=== PATIENT | female | born 1945 | race Caucasian/White ===

== ENCOUNTER 2016-11-24 09:27 | Emergency (ER) | payer MEDICARE, OTHER ==
[~2016-11-24] VITALS: Ht 154.9 cm; Wt 59.0 kg
[~2016-11-24 09:27] MED LIST: BENI40TA30 PO; CLON1 PO; PRAV40TA2 PO; PROP80CA PO
[2016-11-24 09:30] VITALS: BP 116/60; PULSE 81; RESP 18; TEMP 98.8; O2SAT 95
[2016-11-24] MEDS ORDERED: PROP20TA3 PO (09:51)
[2016-11-24] MEDS ORDERED: METH500T3 PO (09:51)
[2016-11-24] MEDS ORDERED: CLON0.5T PO (09:51)
[2016-11-24] MEDS ORDERED: ATOR40TA16 PO (09:51)
[2016-11-24] MEDS ORDERED: AMLO5TAB2 PO (09:51)
--- NOTE | 2016-11-24 09:56 | PD ---
HPI Chief Complaint: Cold / Flu Symptoms Time Seen by Provider: 09:48 Travel History International Travel<30 days: No Contact w/Intl Traveler<30days: No Traveled to known affect area: No History of Present Illness HPI 71-year-old female with history of hypertension and reflux, presents to the ER today for 2 days history of cough, cold symptoms, chills, malaise, nausea. She denies any shortness of breath, chest pains, abdominal pains, vomiting, diarrhea , or other symptoms. She does not know any sick contacts. Modifying Factors: None Associated Signs & Symptoms: Cough, cold symptoms, chills, malaise Risk Factors: None PFSH Past Medical History Hx Anticoagulant Therapy: No Arthritis: No Asthma: No Heart Rhythm Problems: No Cancer: No Cardiovascular Problems: Yes (HTN, CHOL) High Cholesterol: Yes Chest Pain: No Congestive Heart Failure: No COPD: No Cerebrovascular Accident: No Diabetes: No Diminished Hearing: No Endocrine: No Gastrointestinal Disorders: Yes (gerd/nausea) GERD: Yes Genitourinary: No Hiatal Hernia: No Hypertension: Yes Immune Disorder: No Implanted Vascular Access Dvce: No Musculoskeletal: No Neurologic: No Psychiatric: No Reproductive: No Respiratory: No Sleep Apnea: No Ulcer: No Influenza Vaccination: No ?: Not Past Surgical History Abdominal Surgery: Yes (ball bladder removal/hysterectormy) Cardiac Surgery: No (as a baby heart valve, but no surgery) Cholecystectomy: Yes Ear Surgery: No Endocrine Surgery: No Eye Surgery: No Genitourinary Surgery: No Gynecologic Surgery: Yes (hysterectomy) Hysterectomy: Yes Neurologic Surgery: No Oral Surgery: No Thoracic Surgery: No Other Surgery: Yes Social History Alcohol Use: No Tobacco Use: Yes (1 PPD) Substance Use: No Allergies-Medications (Allergen,Severity, Reaction): Coded Allergies: Penicillin (Verified Allergy, Severe, Somnolence, 11/24/16) Reported Meds & Prescriptions Reported Meds & Active Scripts Active Macrobid (Nitrofurantoin Monoh/Nitrofur Macro) 100 Mg Cap 100 Mg PO BID 7 Days Reported Propranolol (Propranolol HCl) 20 Mg Tab 20 Mg PO BID Methocarbamol 500 Mg Tab 500 Mg PO BID PRN Amlodipine (Amlodipine Besylate) 5 Mg Tab 5 Mg PO DAILY Clonazepam 0.5 Mg Tab 0.5 Mg PO TID PRN Atorvastatin (Atorvastatin Calcium) 40 Mg Tab 40 Mg PO HS Review of Systems Except as stated in HPI: all other systems reviewed are Neg Physical Exam Narrative GENERAL: Well-developed pleasant elderly white female patient currently in mild distress. Awake and oriented 3. SKIN: Focused skin assessment warm/dry. HEAD: Atraumatic. Normocephalic. EYES: Pupils equal and round. No scleral icterus. No injection or drainage. ENT: Mucosa pink and moist. Mild erythema with no significant exudates. No uvular edema. No uvular, palatal, or tonsillar deviation. Airway patent. Nasal turbinates appear normal without nasal blood, purulent drainage or septal hematoma. NECK: Trachea midline. No JVD. CARDIOVASCULAR: Regular rate and rhythm. No murmur appreciated. RESPIRATORY: No accessory muscle use. Clear to auscultation. Breath sounds equal bilaterally. GASTROINTESTINAL: Abdomen soft, non-tender, nondistended. Hepatic and splenic margins not palpable. MUSCULOSKELETAL: No obvious deformities. No clubbing. No cyanosis. No edema. NEUROLOGICAL: Awake and alert. No obvious cranial nerve deficits. Motor grossly within normal limits. Normal speech. PSYCHIATRIC: Appropriate mood and affect; insight and judgment normal. Data Data Last Documented VS Vital Signs Date Time Temp Pulse Resp B/P Pulse Ox O2 Delivery O2 Flow Rate FiO2 11/24/16 10:31 98.3 71 18 108/51 98 Room Air Orders Complete Blood Count With Diff (11/24/16 09:51) Comprehensive Metabolic Panel (11/24/16 09:51) Lactic Acid Sepsis Protocol (11/24/16 09:51) Urinalysis - C+S If Indicated (11/24/16 09:51) Influenzae A/B Antigen (11/24/16 09:51) Blood Culture (11/24/16 09:51) Chest, Single Ap (11/24/16 09:51) Blood Glucose (11/24/16 09:51) Ecg Monitoring (11/24/16 09:51) Iv Access Insert/Monitor (11/24/16 09:51) Oximetry (11/24/16 09:51) Oxygen Administration (11/24/16 09:51) Sodium Chlorid 0.9% 500 Ml Inj (Ns 500 M (11/24/16 10:00) Urine Culture (11/24/16 10:10) Nitrofurantoin Monohyd Macrocr (Macrobid (11/24/16 11:00) Labs Laboratory Tests Test 11/24/16 11/24/16 10:10 10:20 Urine Collection Type CLEAN CATCH Urine Color YELLOW Urine Turbidity MOD Urine pH 5.5 Urine Specific [place] 1.032 Urine Protein 30 mg/dL Urine Glucose (UA) NEG mg/dL Urine Ketones TRACE mg/dL Urine Occult Blood TRACE Urine Nitrite POS Urine Bilirubin NEG Urine Leukocyte Esterase TRACE Urine WBC 20-24 /hpf Urine WBC Clumps FEW Urine Squamous Epithelial 0-5 /hpf Cells Urine Amorphous Sediment FEW Urine Bacteria MOD /hpf Microscopic Urinalysis Comment CULTURE INDICATED Urine Collection Time 1010 White Blood Count 9.4 TH/MM3 Red Blood Count 4.06 MIL/MM3 Hemoglobin 13.5 GM/DL Hematocrit 41.1 % Mean Corpuscular Volume 101.2 FL Mean Corpuscular Hemoglobin 33.3 PG Mean Corpuscular Hemoglobin 32.9 % Concent Red Cell Distribution Width 19.0 % Platelet Count 284 TH/MM3 Mean Platelet Volume 7.3 FL Neutrophils (%) (Auto) 72.8 % Lymphocytes (%) (Auto) 19.0 % Monocytes (%) (Auto) 6.8 % Eosinophils (%) (Auto) 0.7 % Basophils (%) (Auto) 0.7 % Neutrophils # (Auto) 6.8 TH/MM3 Lymphocytes # (Auto) 1.8 TH/MM3 Monocytes # (Auto) 0.6 TH/MM3 Eosinophils # (Auto) 0.1 TH/MM3 Basophils # (Auto) 0.1 TH/MM3 CBC Comment DIFF FINAL Differential Comment Sodium Level 142 MEQ/L Potassium Level 3.3 MEQ/L Chloride Level 109 MEQ/L Carbon Dioxide Level 24.4 MEQ/L Anion Gap 9 MEQ/L Blood Urea Nitrogen 7 MG/DL Creatinine 0.81 MG/DL Estimat Glomerular Filtration 70 ML/MIN Rate Random Glucose 100 MG/DL Lactic Acid Level 1.0 mmol/L Calcium Level 8.1 MG/DL Total Bilirubin 0.3 MG/DL Aspartate Amino Transf 26 U/L (AST/SGOT) Alanine Aminotransferase 28 U/L (ALT/SGPT) Alkaline Phosphatase 141 U/L Total Protein 8.3 GM/DL Albumin 3.2 GM/DL MDM Medical Decision Making Medical Screen Exam Complete: Yes Emergency Medical Condition: Yes Medical Record Reviewed: Yes Interpretation(s) Laboratory Tests Test 11/24/16 11/24/16 10:10 10:20 Urine Turbidity MOD (CLEAR) Urine Protein 30 mg/dL (NEG-TRACE) Urine Ketones TRACE mg/dL (NEG) Urine Occult Blood TRACE (NEG) Urine Nitrite POS (NEG) Urine Leukocyte Esterase TRACE (NEG) Urine WBC 20-24 /hpf (0-5) Urine WBC Clumps FEW (NONE) Urine Bacteria MOD /hpf (NONE) Mean Corpuscular Volume 101.2 FL (80.0-100.0) Red Cell Distribution Width 19.0 % (11.6-17.2) Neutrophils (%) (Auto) 72.8 % (16.0-70.0) Potassium Level 3.3 MEQ/L (3.5-5.1) Chloride Level 109 MEQ/L (98-107) Estimat Glomerular Filtration 70 ML/MIN (>89) Rate Calcium Level 8.1 MG/DL (8.5-10.1) Alkaline Phosphatase 141 U/L (45-117) Total Protein 8.3 GM/DL (6.4-8.2) Albumin 3.2 GM/DL (3.4-5.0) Last 24 hours Impressions Chest X-Ray 11/24/16 0951 Signed Impressions: Service Date/Time: Saturday, November 24, 2016 10:20 - CONCLUSION: No acute disease. Stephen Rasmussen MD FACR Differential Diagnosis Cough, cold symptoms, malaise, chillsviral URI versus influenza versus pneumonia Narrative Course Lab work is significant for UTI. There are no significant signs of sepsis, no significant lactate elevation, white blood cell elevation, and no signs of pneumonia and chest x-ray. Vital signs are stable in the ER. At this point, patient was given antibiotic for treatment in the ER my plan would be to release her with further treatment. Follow-up with primary care physician. Return for any worsening in symptoms as needed. The plan has been discussed with the patient and she states understanding. Diagnosis Primary Impression: UTI (urinary tract infection) Med/Other Pt SpecificInfo: Prescription(s) given Scripts Nitrofurantoin Monohydrate Macrocrystals (Macrobid)100 Mg Urt305 Mg PO BID 7 Days Ref 0 Prov:Bandar Rivers MD 11/24/16 Disposition: 01 DISCHARGE HOME Condition: Stable Bandar Rivers MD Nov 24, 2016 09:56 Bandar Rivers MD Nov 24, 2016 09:56
[2016-11-24] MEDS ORDERED: SODIUM CHLORID 0.9% 500 ML INJ 500 ML IV ONE (10:00)
--- NOTE | 2016-11-24 10:28 | RADHPO ---
EXAM DATE/TIME: 11/24/2016 10:20 [facility] COMPARISON: No previous studies available for comparison. INDICATIONS : Cough MEDICAL HISTORY : None. SURGICAL HISTORY : None. ENCOUNTER: Initial ACUITY: 1 week PAIN SCORE: 0/10 LOCATION: Bilateral chest FINDINGS: A single view of the chest demonstrates the lungs to be symmetrically aerated without evidence of mas s, infiltrate or effusion. The cardiomediastinal contours are unremarkable. Osseous structures are intact. CONCLUSION: No acute disease. Stephen Rasmussen MD FACR on November 24, 2016 at 10:26 Board Certified Radiologist. This report was verified electronically.
[2016-11-24 10:30] VITALS: O2SAT 98
[2016-11-24 10:31] VITALS: BP 108/51; PULSE 71; RESP 18; TEMP 98.3; O2SAT 98
[2016-11-24 10:34] LABS: AUTOMATED NEUTROPHIL # 6.8 TH/MM3 (1.8-7.7); BASOPHIL # 0.1 TH/MM3 (0-0.2); BASOPHIL % 0.7 % (0.0-2.0); EOSINOPHIL # 0.1 TH/MM3 (0-0.4); EOSINOPHIL % 0.7 % (0.0-4.0); HEMATOCRIT 41.1 % (35.0-46.0); HEMO FLAGS DIFF FINAL; LYMPHOCYTE # 1.8 TH/MM3 (1.0-4.8); MEAN CELL VOLUME 101.2 FL (80.0-100.0); MEAN CORPUSCULAR HEMOGLOBIN 33.3 PG (27.0-34.0); MEAN CORPUSCULAR HGB CONC 32.9 % (32.0-36.0); MONO % 6.8 % (0.0-8.0); NEUT % 72.8 % (16.0-70.0); PLATELET COUNT 284 TH/MM3 (150-450); RED BLOOD COUNT 4.06 MIL/MM3 (4.00-5.30); WHITE BLOOD COUNT 9.4 TH/MM3 (4.0-11.0)
[2016-11-24 10:37] LABS: BLOOD, URINE TRACE (NEG); GLUCOSE,URINE NEG (NEG); KETONE, URINE TRACE mg/dL (NEG); PH, URINE 5.5 (5.0-8.5)
[2016-11-24 10:41] LABS: CHLORIDE 109 MEQ/L (98-107); POTASSIUM 3.3 MEQ/L (3.5-5.1); SODIUM (NA) 142 MEQ/L (136-145)
[2016-11-24 10:42] LABS: NITRITE,URINE POS (NEG)
[2016-11-24 10:43] LABS: BACTERIA, URINE MOD /hpf; COMMENT (UR) CULTURE INDICATED; CULTURE IF INDICATED CULTURE INDICATED; METHOD OF COLLECTION CLEAN CATCH; SQUAMOUS EPITHELIAL CELL URINE 0-5 /hpf (0-5); URINE COLOR YELLOW (YELLW/STRAW)
[2016-11-24 10:45] LABS: ANION GAP 9 MEQ/L (5-15); BICARBONATE 24.4 MEQ/L (21.0-32.0); BLOOD UREA NITROGEN 7 MG/DL (7-18)
[2016-11-24 10:47] LABS: ALT (GPT) 28 U/L (10-53)
[2016-11-24 10:48] LABS: AST (GOT) 26 U/L (15-37); GLOMERULAR FILTRATION RATE 70 ML/MIN (>89)
[2016-11-24 10:49] LABS: TOTAL BILIRUBIN ADULT 0.3 MG/DL (0.2-1.0)
[2016-11-24 10:51] LABS: ALKALINE PHOSPHATASE 141 U/L (45-117)
[2016-11-24] MEDS ORDERED: NITROFURANTOIN MONOHYD MACROCR 100 MG CAP PO ONE (11:00)
[2016-11-24] MEDS ORDERED: MACR100C2 PO (11:01)
== END 2016-11-24 11:25 | disposition home or self-care (01) ==
LOC: PHED 09:27
DX: N39.0 Urinary tract infection, site not specified (principal); B96.20 Unspecified Escherichia coli [E. coli] as the cause of diseases classified elsewhere; R05 Cough; R68.83 Chills (without fever); R53.81 Other malaise; R11.0 Nausea; I10 Essential (primary) hypertension; E78.00 Pure hypercholesterolemia, unspecified; F17.200 Nicotine dependence, unspecified, uncomplicated; Z87.19 Personal history of other diseases of the digestive system; Z86.79 Personal history of other diseases of the circulatory system
CPT/HCPCS: 71010; 80053; 81001; 83605; 85025; 87040; 87077; 87086; 87186; 87804; 96360; 99284; J7040